=== PATIENT | male | born 1985 | race African-American/Black ===

== ENCOUNTER → 2018-07-25 | Day surgery (SDC) | payer MEDICARE, OTHER ==
[~2018-07-25] MED LIST: BENADRYL25 M1 PO; LIDOCAINE HCL 2% LOCAL INJ 5 ML SDV VIAL INJ ONE; MIDAZOLAM HCL 2 MG/2 ML VIAL ONE; PATADAY2.5 ML IO; PREDNISOLO15 MG/5 ML IO; PROPOFOL IV EMULSION 10 MG/ML 50 ML VIAL ONE; RESTASIS1 EACH OU; RISPERIDONE1 MG PO; TRAZODONE HCL50 MG PO; VISINE-A EYE AL15 ML IO
--- OUTSIDE RECORDS SUMMARY | 2018-07-25 09:00 | XMS REPORT | Continuity of Care Document ---
Author Author [facility] Interface Address Unknown Phone Unavailable Problems Problem Status Onset Date Classification Date Reported Comments Source R00.0 TACHYCARDIA Active 08/07/2015 [facility] TACHYCARDIA, UNSPECIFIED Active [facility] Medications Medication Details Route Status Patient Instructions Ordering Provider Order Date Source Allergies, Adverse Reactions, Alerts Substance Category Reaction Severity Reaction type Status Date Reported Comments Source Immunizations Immunization Date Given Site Status Last Updated Comments Source Results Order Name Results Value Reference Range Date Interpretation Comments Source Vital Signs Vital Sign Value Date Comments Source Height 175.26 cm 08/17/2015 [facility] BMI Calculated 41.44 08/17/2015 [facility] Weight 127.273 08/17/2015 [facility] Encounters Location Location Details Encounter Type Encounter Number Reason For Visit Attending Provider ADM Date DC Date Status Source [facility] [id number] Dru Dowd 08/17/2015 08/18/2015 [facility] Outpatient [id number] ALBA VAZQUEZ 10/22/2017 Active [facility] Procedures Procedure Code Date Perfomer Comments Source
--- OUTSIDE RECORDS SUMMARY | 2018-07-25 09:00 | XMS REPORT | Summary of Care ---
Author Author [facility] Organization [facility] Address Unknown Phone Unavailable Encounter HQ Franci(AUSTYN) [id number] Date(s): 08/17/15 - 08/17/15 [facility] [address] [place] [address] Discharge Disposition: Home Attending Physician: Dru Dowd MD Referring Physician: Dru Dowd MD Vital Signs Most recent to 1 oldest [Reference Range]: Height 175.26 cm (08/17/15 12:21 PM) Weight 127.273 kg (08/17/15 12:21 PM) Body Mass Index 41.44 m2 (08/17/15 12:21 PM) Problem List No data available for this section Allergies, Adverse Reactions, Alerts No data available for this section Medications No data available for this section Results No data available for this section Immunizations No data available for this section Procedures No data available for this section Social History No data available for this section Assessment and Plan No data available for this section
--- OUTSIDE RECORDS SUMMARY | 2018-07-25 09:00 | XMS REPORT | Summary of Care ---
Author Author Amy Knapp R.N. Unknown Address Unknown Phone Unavailable Care Team Providers Care [employer] Name Role Phone MYRIAM DUQUE M.D. Unavailable Unavailable SHIRA CHAVEZ MD Unavailable Unavailable Unavailable Unavailable Functional Status Name Dates Details Functional status health issues are not documented Status: Name Dates Details Cognitive status health issues are not documented Status: Problems Name Dates Details Anxiety (300.00, F41.9) Status: Active Schizophrenia, unspecified type (295.90, F20.9) Status: Active Medications Name Dates Details Combigan 0.2-0.5 % Ophthalmic Solution INSTILL 1 DROP Twice daily 1 DROP IN LEFT EYE Active 5 ML Bottle Pataday SOLN INSTILL 1 DROP Twice daily 1 DROP IN BOTH EYES DAILY * Refills: 0 Active 2.5 ML Bottle Benadryl Allergy 25 MG Oral Tablet Take 1 tablet by mouth twice a day. * Quantity: 60 Refills: 1 MYRIAM DUQUE M.D. * Start : 07-Jan-2018 Active RisperiDONE 2 MG Oral Tablet Take 1 tablet by mouth twice a day * Quantity: 60 Refills: 3 FRANCISCO DUQUE M.D.ED * Start : 15-Jan-2018 Active TraZODone HCl - 50 MG Oral Tablet Take half a tablet to full one tablet at bedtime for sleep. * Quantity: 30 Refills: 3 MYRIAM DUQUE M.D. * Start : 23-Jul-2018 Active Allergies and Adverse Reactions Name Dates Details Dimetapp Cold and Flu (Allergy) Status: Active Past Medical History Name Dates Details History of autism (V11.8, Z86.59) Status: Resolved History of eating disorder (V11.8, Z86.59) Status: Resolved History of eye disorder (V12.49, Z86.69) Status: Resolved History of Mood disorder (296.90, F39) Status: Resolved History of schizophrenia (V11.0, Z86.59) Status: Resolved Procedures Procedure Dates Details [QL] CBC (INCLUDES DIFF/PLT) Date: 23-Jul-2018 [QLH] CMP W/EGFR Date: 23-Jul-2018 [QLH] PROLACTIN Date: 23-Jul-2018 [QLH] TSH, 3RD GENERATION Date: 23-Jul-2018 [QLH] LIPID PANEL Date: 23-Jul-2018 [QLH] HEMOGLOBIN A1c Date: 23-Jul-2018 [QLH] LIPASE Date: 23-Jul-2018 [QLH] AMYLASE Date: 23-Jul-2018 History of Cornea transplantation Completed Immunization Name Dates Details Immunizations not documented Social History Name Dates Details - Status: Name Dates Details Never smoker Vital Signs Date Test Result Details [id number] BP Systolic 136 mm[Hg] Status: BP Diastolic 79 mm[Hg] Status: Height 69 in Status: Weight 259 lb Status: Body Mass Index Calculated 38.25 kg/m2 Status: Body Surface Area Calculated 2.31 m2 Status: Temperature 98.3 f Status: Heart Rate 98 /min Status: Respiration Rate 16 /min Status: O2 SAT 100 % Status: Results Date Description Value Details Results not documented Plan of Care Name Dates Details Planned Observations Planned Goals not documented Interventions Provided Medication Changes* RisperiDONE 2 MG Oral Tablet - Renew * TraZODone HCl - 50 MG Oral Tablet - Start Labs/Procedures/Imaging* [QLH] AMYLASE; To Be Done: 23 Jul 2018 * [QLH] CBC (INCLUDES DIFF/PLT); To Be Done: 23 Jul 2018 * [QLH] CMP W/EGFR; To Be Done: 23 Jul 2018 * [QLH] HEMOGLOBIN A1c; To Be Done: 23 Jul 2018 * [QLH] LIPASE; To Be Done: 23 Jul 2018 * [QLH] LIPID PANEL; To Be Done: 23 Jul 2018 * [QLH] PROLACTIN; To Be Done: 23 Jul 2018 * [QLH] TSH, 3RD GENERATION; To Be Done: 23 Jul 2018 Instructions Name Dates Details Instructions not documented Encounters Appointment; MYRIAM DUQUE M.D. Encounter Diagnosis: Problem not documented On: 07-Jan-2018 11:00 Appointment; MYRIAM DUQUE M.D. Encounter Diagnosis: Problem not documented On: 15-Jan-2018 16:00 Appointment; MYRIAM DUQUE M.D. Encounter Diagnosis: Problem not documented On: 04-Feb-2018 15:30 Appointment; MYRIAM DUQUE M.D. Encounter Diagnosis: Problem not documented On: 25-Mar-2018 11:30 Appointment; MYRIAM DUQUE M.D. Encounter Diagnosis: Problem not documented On: 23-Jul-2018 11:00
[2018-07-25 12:05] VITALS: BP 103/71
== END | disposition home or self-care (01) ==
LOC: OR 08:55
PROVIDERS: ATTEND Internal Medicine
DX: K29.70 Gastritis, unspecified, without bleeding (principal); K21.0 Gastro-esophageal reflux disease with esophagitis; K44.9 Diaphragmatic hernia without obstruction or gangrene; F20.9 Schizophrenia, unspecified
CPT/HCPCS: 43239; J2001; J2250